=== PATIENT | male | born 1960 | race Caucasian/White ===

== ENCOUNTER 2018-04-30 13:16 | Emergency (ER) | payer BC ==
[2018-04-30] MEDS ORDERED: GLUCAGON,HUMAN RECOMB 1 MG INJ IM ONE (13:37)
--- NOTE | 2018-04-30 13:41 | ER Document Report ---
ED Medical Screen (RME) - General Chief Complaint: Choked/Choking Stated Complaint: FOOD STUCK IN THROAT Time Seen by Provider: 04/30/18 13:31 Mode of Arrival: Ambulatory Information source: Patient TRAVEL OUTSIDE OF THE [place] IN LAST 30 DAYS: No - HPI Patient complains to provider of: food impaction Onset: This morning - pt. states he ate some andrade earlier this am nad it "hasn't gone down." Has tried to drink water but throws it back up - Related Data Allergies/Adverse Reactions: Sulfa (Sulfonamide Antibiotics) Allergy (Verified 04/30/18 13:32) Past Medical History - Social History Chew tobacco use (# tins/day): No Frequency of alcohol use: None Drug Abuse: None Renal/ Medical History: Denies: Hx Peritoneal Dialysis Physical Exam - Vital signs Vitals: Temp Pulse Resp BP Pulse Ox 98.2 F 98 18 168/99 H 98 04/30/18 13:26 04/30/18 13:26 04/30/18 13:26 04/30/18 13:26 04/30/18 13:26 Course - Vital Signs Vital signs: Temp Pulse Resp BP Pulse Ox 98.2 F 98 18 168/99 H 98 04/30/18 13:26 04/30/18 13:26 04/30/18 13:26 04/30/18 13:26 04/30/18 13:26 Doctor's Discharge - Discharge Referrals: KHOANO [Primary Care Provider] - Follow up as needed
--- NOTE | 2018-04-30 14:08 | RADIOLOGY REPORT (SQ) ---
EXAM DESCRIPTION: SOFT TISSUE NECK COMPLETED DATE/TIME: 04/30/2018 1:55 pm REASON FOR STUDY: FB evaluation COMPARISON: None. NUMBER OF VIEWS: Two views. TECHNIQUE: AP and lateral radiographic image of the soft tissues of the neck. LIMITATIONS: None. FINDINGS: EPIGLOTTIS: Normal. Contour normal. Aryepiglottic folds normal. PREVERTEBRAL SOFT TISSUES: Normal. No soft tissue swelling. SUBGLOTTIC AREA: Normal. No narrowing. RETROPHARYNGEAL SPACE: Normal. No soft tissue masses. BONES: No significant findings. LUNG APICES: Normal. OTHER: No radiopaque foreign body. No other significant finding. IMPRESSION: NEGATIVE STUDY OF THE SOFT TISSUES OF THE NECK. TECHNICAL DOCUMENTATION: JOB ID: [id number] [employer]- All Rights Reserved Reading location - IP/workstation name: [email or web address]
--- NOTE | 2018-04-30 15:22 | ER Document Report ---
ED General - General Chief Complaint: Choked/Choking Stated Complaint: FOOD STUCK IN THROAT Time Seen by Provider: 04/30/18 13:31 Mode of Arrival: Ambulatory Notes: Patient is a 57-year-old male with history of esophageal stricture that presents to the emergency department for chief complaint of difficulty swallowing. Patient states that this occurred around 10 AM this morning when he was eating andrade drinking coffee, he felt pain midsternally, and was unable to swallow his secretions, and his son did the Heimlich maneuver on him, which did bring up some andrade, but overall he did not feel much better afterwards. He has had a history of this in the past, he had esophageal dilatation about 5 or 6 years ago, he has been doing well since then, he did have GERD as well, but is not currently on any medication for that. He currently rates his pain as a 1 out of 10, he did receive glucagon in triage and seems to be helping for him. Past Medical History: Hypertension, esophageal stricture, GERD Past Surgical History: Esophageal dilatation Social History: Denies tobacco, alcohol or drug use. Family History: Reviewed and noncontributory for presenting illness Allergies: Reviewed, see documented allergy list. REVIEW OF SYSTEMS: Other than noted above, the 12 point review of systems was reviewed with the patient and were negative, all pertinent findings are included in the HPI. PHYSICAL EXAMINATION: Vital signs reviewed, nursing noted reviewed. GENERAL: Well-appearing, well-nourished and in no acute distress. HEAD: Atraumatic, normocephalic. EYES: Eyes appear normal, extraocular movements intact, sclera anicteric, conjunctiva are normal. ENT: nares patent, oropharynx clear without exudates. Moist mucous membranes. NECK: Normal range of motion, supple without lymphadenopathy LUNGS: Breath sounds clear to auscultation bilaterally and equal. No wheezes rales or rhonchi. HEART: Regular rate and rhythm without murmurs ABDOMEN: Soft, nontender, normoactive bowel sounds. No rebound, guarding, or rigidity. No masses appreciated. EXTREMITIES: Nontender, good range of motion, no pitting or edema. NEUROLOGICAL: No focal neurological deficits. Moves all extremities spontaneously Motor and sensory grossly intact on exam. PSYCH: Normal mood, normal affect. SKIN: Warm, Dry, normal turgor, no rashes or lesions noted on exposed skin TRAVEL OUTSIDE OF THE [place] IN LAST 30 DAYS: No - Related Data Allergies/Adverse Reactions: Sulfa (Sulfonamide Antibiotics) Allergy (Verified 04/30/18 13:32) Past Medical History - General Information source: Patient - Social History Smoking Status: Never Smoker Chew tobacco use (# tins/day): No Frequency of alcohol use: None Drug Abuse: None Family History: Reviewed & Not Pertinent Patient has suicidal ideation: No Patient has homicidal ideation: No - Past Medical History Cardiac Medical History: Reports: Hx Hypertension Renal/ Medical History: Denies: Hx Peritoneal Dialysis GI Medical History: Reports: Hx Gastroesophageal Reflux Disease Physical Exam - Vital signs Vitals: Temp Pulse Resp BP Pulse Ox 98.2 F 98 18 168/99 H 98 04/30/18 13:26 04/30/18 13:26 04/30/18 13:26 04/30/18 13:26 04/30/18 13:26 Course - Re-evaluation Re-evalutation: Patient seen and examined, vital signs reviewed. Patient was given glucagon in triage, and he seems to be doing better, he was able to tolerate liquid juice, without expectorating, will trial him on some dinesh ricky to see if that continues to stay down, if he is able to, we will have him follow-up with gastroenterology, for outpatient evaluation and likely EGD and dilatation. He is advised to maintain on a liquid diet. Soft tissue neck x-rays were ordered by triage provider and were negative. Patient was able to keep down liquids, in the emergency department, without any further vomiting, or expectorating, will discharge him home to follow-up with gastroenterology, given prescription for Carafate, patient agreeable to plan of care and advised to return if his symptoms worsened in any way. His evaluation was most consistent with esophageal impaction versus possible hiatal hernia, that seem to be relieved with glucagon. - Vital Signs Vital signs: Temp Pulse Resp BP Pulse Ox 98.3 F 95 16 128/81 H 97 04/30/18 16:04 04/30/18 16:04 04/30/18 16:04 04/30/18 16:04 04/30/18 16:04 Discharge - Discharge Clinical Impression: Food impaction of esophagus Qualifiers: Encounter type: initial encounter Qualified Code(s): T18.128A - Food in esophagus causing other injury, initial encounter Condition: Stable Disposition: HOME, SELF-CARE Instructions: Esophageal Food Impaction ([facility]) Additional Instructions: Please follow-up with gastroenterology, call for an appointment as soon as possible, in the meantime, he should stick to a liquid diet including protein shakes, to maintain your calories, and drink water, please take the Carafate as prescribed as well, to help coat the lining of your stomach, may help if you do have a hiatal hernia. If your symptoms worsen, you are not able to maintain your secretions, and continue to spit constantly, do not hesitate to return to the emergency department to be reevaluated. Prescriptions: Sucralfate [Carafate 1 gm Tablet] 1 gm PO ACHS #80 tablet Referrals: ALYSON COPELAND MD [ACTIVE STAFF] - Follow up as needed ANGUS QUESADA MD [ACTIVE STAFF] - Follow up as needed
[2018-04-30 16:19] VITALS: BP 128/81
== END 2018-04-30 16:04 | disposition home or self-care (01) ==
LOC: ER 13:16
DX: R10.13 Epigastric pain (principal); R13.10 Dysphagia, unspecified; I10 Essential (primary) hypertension; K21.9 Gastro-esophageal reflux disease without esophagitis; Z88.2 Allergy status to sulfonamides
CPT/HCPCS: 99283; 70360; J1610

== ENCOUNTER 2018-09-10 22:19 | Emergency (ER) | payer BC ==
--- NOTE | 2018-09-10 23:30 | EKG REPORT ---
SEVERITY:- OTHERWISE NORMAL ECG - SINUS TACHYCARDIA : Confirmed by: Sheila Camarillo MD 10-Sep-2018 23:29:24
--- NOTE | 2018-09-11 01:15 | RADIOLOGY REPORT (SQ) ---
EXAM DESCRIPTION: X-ray two view chest. CLINICAL HISTORY: 57 years Male, pain in left side of chest and shoulder radiating down left arm x1 week COMPARISON: None. TECHNIQUE: PA and Lateral views of the chest performed on 09/11/2018 at 1:00 AM FINDINGS: The lungs are well expanded and are clear. The costophrenic sulci are clear. There is no evidence of a pneumothorax. The cardiac silhouette is normal in size. The mediastinal contours are normal. No acute osseous abnormalities are identified. There are mild degenerative changes of the thoracic spine. No focal soft tissue abnormalities are identified. IMPRESSION: No evidence of acute intrathoracic disease.
[2018-09-11 01:30] LABS: ABSOLUTE EOSINOPHILS # (AUTO) 0.1 10^3/uL (0.0-0.6); ABSOLUTE LYMPHOCYTES (AUTO) 1.1 10^3/uL (0.5-4.7); ABSOLUTE MONOCYTES (AUTO) 0.7 10^3/uL (0.1-1.4); ABSOLUTE NEUT (AUTO) 8.6 10^3/uL (1.7-8.2); BASOPHILS % (AUTO) 0.3 % (0-2); EOSINOPHILS % (AUTO) 0.5 % (0-6); HEMATOCRIT 45.8 % (37.9-51.0); HEMOGLOBIN 16.1 g/dL (13.5-17.0); LYMPHOCYTES % (AUTO) 10.7 % (13-45); MEAN CORPUSCULAR HEMOGLOBIN 31.2 pg (27.0-33.4); MEAN CORPUSCULAR HGB CONC 35.1 g/dL (32.0-36.0); MEAN CORPUSCULAR VOLUME 89 fl (80-97); MONOCYTES % (AUTO) 6.9 % (3-13); PLATELET COUNT 234 10^3/uL (150-450); RED BLOOD COUNT 5.16 10^6/uL (4.35-5.55); RED CELL DISTRIBUTION WIDTH 12.9 % (11.5-14.0); SEGMENTED NEUTROPHILS % (AUTO) 81.6 % (42-78); TOTAL CELLS COUNTED % (AUTO) 100 %; WHITE BLOOD COUNT 10.5 10^3/uL (4.0-10.5)
[2018-09-11 01:53] LABS: ALANINE AMINOTRANSFERASE 24 U/L (21-72); ALBUMIN 4.5 g/dL (3.5-5.0); ALKALINE PHOSPHATASE 79 U/L (38-126); ANION GAP 14 (5-19); ASPARTATE AMINO TRANSFERASE 23 U/L (17-59); BILIRUBIN,DIRECT 0.3 mg/dL (0.0-0.4); BILIRUBIN,TOTAL 0.5 mg/dL (0.2-1.3); BLOOD UREA NITROGEN 21 mg/dL (7-20); CALCIUM 9.5 mg/dL (8.4-10.2); CARBON DIOXIDE 23 mmol/L (22-30); CHLORIDE 106 mmol/L (98-107); CREATINE KINASE 102 U/L (55-170); GLUCOSE 88 mg/dL (75-110); POTASSIUM 3.9 mmol/L (3.6-5.0); SODIUM 142.6 mmol/L (137-145); TOTAL PROTEIN 7.6 g/dL (6.3-8.2)
[2018-09-11 02:01] LABS: CREATINE KINASE MB 0.64 ng/mL (<4.55)
[2018-09-11 02:03] LABS: TROPONIN I < 0.012 ng/mL
[2018-09-11] MEDS ORDERED: KETOROLAC TROMETHAMINE 60 MG/2 ML SDV IM ONE (02:42)
--- NOTE | 2018-09-11 02:44 | ER Document Report ---
ED General - General Chief Complaint: Chest Pain Stated Complaint: CHEST PAIN, LEFT ARM PAIN Time Seen by Provider: 09/11/18 01:59 Notes: Patient is a 57-year-old male with a past medical history of essential hypertension who presents with 2 to 3 days of intermittent pain to his left shoulder, left trapezius, left periscapular region, left axilla and left chest wall. Patient states that the pain is positional in nature and that he finds th at sitting or moving in certain ways seems to exacerbate the pain. He also notes that moving his left shoulder seems to worsen the pain. The patient does describe the pain as being an aching, throbbing, soreness. Has not tried nothing for improvement. Saw an urgent care, EKG was done and patient was informed that this is likely musculoskeletal. He states when he began having some shooting pains down into his left upper extremity tonight he decided to come to the hospital to ensure that there was nothing more concerning going on. He denies any history of similar symptoms in the past. He denies any known history of coronary artery disease. Denies any associated nausea, vomiting, diaphoresis or shortness of breath. TRAVEL OUTSIDE OF THE [place] IN LAST 30 DAYS: No - Related Data Allergies/Adverse Reactions: Sulfa (Sulfonamide Antibiotics) Allergy (Verified 04/30/18 13:32) Past Medical History - General Information source: Patient - Social History Smoking Status: Never Smoker Frequency of alcohol use: None Drug Abuse: None Lives with: Alone Family History: Reviewed & Not Pertinent Patient has suicidal ideation: No Patient has homicidal ideation: No - Past Medical History Cardiac Medical History: Reports: Hx Hypertension Renal/ Medical History: Denies: Hx Peritoneal Dialysis GI Medical History: Reports: Hx Gastroesophageal Reflux Disease Review of Systems - Review of Systems Notes: Constitutional: Negative for fever. HENT: Negative for sore throat. Eyes: Negative for visual changes. Cardiovascular: Negative for palpitations Respiratory: Negative for shortness of breath. Gastrointestinal: Negative for abdominal pain, vomiting or diarrhea. Genitourinary: Negative for dysuria. Musculoskeletal: Positive for left shoulder, left axillary and left chest wall pain Skin: Negative for rash. Neurological: Negative for headaches, weakness or numbness. 10 point ROS negative except as marked above and in HPI. Physical Exam - Vital signs Vitals: Temp Pulse Resp BP Pulse Ox 98.1 F 119 H 16 145/88 H 98 09/10/18 22:44 09/10/18 22:44 09/10/18 22:44 09/10/18 22:44 09/10/18 22:44 Interpretation: Tachycardic - Normal at the time of my assessment with a heart rate of 87 Notes: PHYSICAL EXAMINATION: GENERAL: Well-appearing, well-nourished and in no acute distress. HEAD: Atraumatic, normocephalic. EYES: Pupils equal round and reactive to light, extraocular movements intact, sclera anicteric, conjunctiva are normal. ENT: nares patent, oropharynx clear without exudates. Moist mucous membranes. NECK: Normal range of motion, supple without lymphadenopathy LUNGS: Breath sounds clear to auscultation bilaterally and equal. No wheezes rales or rhonchi. HEART: Regular rate and rhythm without murmurs Chest wall: Pain is reproduced on palpation of the left axilla and left lateral chest wall ABDOMEN: Soft, nontender, normoactive bowel sounds. No guarding, no rebound. No masses appreciated. EXTREMITIES: Normal range of motion, no pitting or edema. No cyanosis. NEUROLOGICAL: No focal neurological deficits. Moves all extremities spontane ously and on command. PSYCH: Normal mood, normal affect. SKIN: Warm, Dry, normal turgor, no rashes or lesions noted. Course - Re-evaluation Re-evalutation: 09/11/18 02:43 Patient presents with signs and symptoms most consistent with a cervical nerve root impingement versus musculoskeletal inflammation. Patient presents with ramy n into the shoulder, neck, and radiation of pain into the extremity. Patient also reports of some dullness over the forearm as well as into the hand itself. Patient reports that symptoms are very positional nature and depend upon the position of his shoulder and neck. Pain is been ongoing for several days. Patient is clear to state on multiple occasions that the pain is directly related to movement and position of the left shoulder and left neck. On neurologic exam patient has 5 out of 5 biceps and triceps strength. RMU motor and sensory distribution including against resistance on motor testing is noted to be normal. 2+ radial pulse and capillary refill is less than 1 second in all digits. Laboratories including troponin have been obtained given associated chest discomfort and are noted to be unremarkable. EKG likewise unremarkable. Patient has had improvement of symptoms after receiving analgesia here in the emergency department. Advised supportive pillow for sleep at night, have treated with NSAIDs. At this time will discharge with return precautions and follow-up recommendations. Verbal discharge instructions given a the bedside and opportunity for questions given. Medication warnings reviewed. Patient is in agreement with this plan and has verbalized understanding of return precautions and the need for primary care follow-up in the next 24-72 hours. - Vital Signs Vital signs: Temp Pulse Resp BP Pulse Ox 98.3 F 119 H 18 119/86 H 99 09/11/18 03:01 09/10/18 22:44 09/11/18 03:01 09/11/18 03:01 09/11/18 03:01 - Laboratory Result Diagrams: 09/11/18 00:42 09/11/18 00:42 Laboratory results interpreted by me: 09/11/18 09/11/18 00:42 00:42 Seg Neutrophils % 81.6 H Lymphocytes % 10.7 L Absolute Neutrophils 8.6 H BUN 21 H - Diagnostic Test Radiology reviewed: Image reviewed, Reports reviewed Radiology results interpreted by me: 09/11/18 02:43 Chest x-ray: No acute infiltrate or pneumothorax - EKG Interpretation by Me Additional EKG results interpreted by me: 09/11/18 02:44 Sinus tachycardia, rate 116, no ST elevations or depressions. QTC is 439. Discharge - Discharge Clinical Impression: Left-sided chest wall pain, Left arm pain Left shoulder pain Qualifiers: Chronicity: acute Qualified Code(s): M25.512 - Pain in left shoulder Condition: Good Disposition: HOME, SELF-CARE Additional Instructions: You were seen today for chest pain. The exact cause of your pain is unclear. It may be related to impingement of your cervical nerve root. However, based on your cardiac enzyme testing, chest x-ray, and EKG it does not appear that it is from an immediately life-threatening cause at this time. Although your testing here is normal is critical that you follow-up with your primary care physician for continued evaluation of this chest pain and possible stress testing. I recommended you see your physician within the next 24-48 hours to be evaluated for consideration of a stress test. Please return to emergency department immediately if you have worsening of your chest pain, shortness of breath, vomiting, become unable to exert yourself due to pain or difficulty breathing, you pass out, or have any pain that radiates into your arms, jaw, or back. Plea se also return if you have any additional symptoms that are concerning to you. Prescriptions: Naproxen 500 mg PO BID PRN #14 tablet PRN Reason:
[2018-09-11 03:33] VITALS: BP 119/86
== END 2018-09-11 03:25 | disposition home or self-care (01) ==
LOC: ER 22:19
DX: R07.89 Other chest pain (principal); M79.622 Pain in left upper arm; M25.512 Pain in left shoulder; M54.89 Other dorsalgia; R00.0 Tachycardia, unspecified; I10 Essential (primary) hypertension; Z88.2 Allergy status to sulfonamides
CPT/HCPCS: 93005; 99284; 96372; 36415; 82553; 82550; 85025; 80053; 84484; 71046; 93010; J1885

== ENCOUNTER 2019-04-06 03:29 | Emergency (ER) | payer BC ==
[2019-04-06 05:11] LABS: ABSOLUTE EOSINOPHILS # (AUTO) 0.1 10^3/uL (0.0-0.6); ABSOLUTE LYMPHOCYTES (AUTO) 1.3 10^3/uL (0.5-4.7); ABSOLUTE MONOCYTES (AUTO) 0.5 10^3/uL (0.1-1.4); ABSOLUTE NEUT (AUTO) 5.5 10^3/uL (1.7-8.2); BASOPHILS % (AUTO) 0.2 % (0-2); HEMOGLOBIN 16.4 g/dL (13.5-17.0); LYMPHOCYTES % (AUTO) 17.2 % (13-45); MEAN CORPUSCULAR HEMOGLOBIN 31.6 pg (27.0-33.4); MEAN CORPUSCULAR HGB CONC 34.9 g/dL (32.0-36.0); MEAN CORPUSCULAR VOLUME 91 fl (80-97); MONOCYTES % (AUTO) 6.8 % (3-13); PLATELET COUNT 217 10^3/uL (150-450); RED CELL DISTRIBUTION WIDTH 12.9 % (11.5-14.0); SEGMENTED NEUTROPHILS % (AUTO) 74.8 % (42-78); TOTAL CELLS COUNTED % (AUTO) 100 %; WHITE BLOOD COUNT 7.3 10^3/uL (4.0-10.5)
[2019-04-06 05:28] LABS: ALBUMIN 4.6 g/dL (3.5-5.0); ALKALINE PHOSPHATASE 67 U/L (38-126); ANION GAP 11 (5-19); ASPARTATE AMINO TRANSFERASE 30 U/L (17-59); BILIRUBIN,DIRECT 0.2 mg/dL (0.0-0.4); BILIRUBIN,TOTAL 0.4 mg/dL (0.2-1.3); BLOOD UREA NITROGEN 13 mg/dL (7-20); CALCIUM 9.4 mg/dL (8.4-10.2); CARBON DIOXIDE 24 mmol/L (22-30); CHLORIDE 106 mmol/L (98-107); CREATINE KINASE 341 U/L (55-170); GLUCOSE 106 mg/dL (75-110); TOTAL PROTEIN 7.5 g/dL (6.3-8.2)
[2019-04-06 05:40] LABS: TROPONIN I < 0.012 ng/mL
--- NOTE | 2019-04-06 06:01 | RADIOLOGY REPORT (SQ) ---
CLINICAL HISTORY: CP COMPARISON: None. TECHNIQUE: XR CHEST 2 VIEWS 04/06/2019 12:00 AM MARKETING EXECUTIVE FINDINGS: Cardiac silhouette is normal in size. Lungs are clear without consolidation, atelectasis, mass or edema. There is no pleural effusion. There is no pneumothorax. There are no acute osseous findings. IMPRESSION: Clear lungs.
[2019-04-06] MEDS ORDERED: LOSARTAN POTASSIUM 25 MG TABLET PO ONE (09:48)
--- NOTE | 2019-04-06 10:56 | ER Document Report ---
ED Cardiac - General Chief Complaint: Chest Pain Stated Complaint: CHEST PAIN/BLOOD PRESSURE ISSUES Time Seen by Provider: 04/06/19 09:23 Notes: 4-year-old male with history of hypertension presents for left-sided chest pressure point to the left shoulder blade started last night at 1700. Patient had no associated dyspnea, dizziness, diaphoresis, nausea/vomiting. Patient states his pain has resolved. Patient states he checked his blood pressure and states it was elevated. Patient states off his blood pressure meds for approximately 6 months because his PCP took him off of it. Patient also states that time he has gained 25 pounds. Patient states previous to this he did actively lose 80 pounds and his primary care doctor weaned him off his blood pressure meds. Patient states family history is positive for a father who had stents placed in his 60s TRAVEL OUTSIDE OF THE [place] IN LAST 30 DAYS: No - Related Data Allergies/Adverse Reactions: Sulfa (Sulfonamide Antibiotics) Allergy (Verified 04/30/18 13:32) Past Medical History - Social History Smoking Status: Never Smoker Family History: Reviewed & Not Pertinent Patient has suicidal ideation: No Patient has homicidal ideation: No - Past Medical History Cardiac Medical History: Reports: Hx Hypertension Renal/ Medical History: Denies: Hx Peritoneal Dialysis GI Medical History: Reports: Hx Gastroesophageal Reflux Disease Review of Systems - Review of Systems Notes: Constitutional: Negative for fever. HENT: Negative for sore throat. Eyes: Negative for visual changes. Cardiovascular: Positive for chest pain. Respiratory: Negative for shortness of breath. Gastrointestinal: Negative for abdominal pain, vomiting or diarrhea. Genitourinary: Negative for dysuria. Musculoskeletal: Negative for back pain. Skin: Negative for rash. Neurological: Negative for headaches, weakness or numbness. 10 point ROS negative except as marked above and in HPI. Physical Exam - Vital signs Vitals: Temp Pulse Resp BP Pulse Ox 97.7 F 111 H 18 200/104 H 99 04/06/19 03:38 04/06/19 03:38 04/06/19 03:38 04/06/19 03:38 04/06/19 03:38 - Notes Notes: GENERAL: Well-appearing, well-nourished and in no acute distress. HEAD: Atraumatic, normocephalic. EYES: Extraocular movements intact, sclera anicteric, conjunctiva are normal. NECK: Normal range of motion, supple without lymphadenopathy or JVD. LUNGS: Breath sounds clear to auscultation bilaterally and equal. No wheezes rales or rhonchi. HEART: Regular rate and rhythm without murmurs, rubs or gallops. ABDOMEN: Soft, nontender. No guarding, no rebound. No masses appreciated. EXTREMITIES: Normal range of motion, no pitting or edema. No clubbing or cyanosis. NEUROLOGICAL: Cranial nerves II through XII grossly intact. Normal speech, normal gait. PSYCH: Normal mood, normal affect. SKIN: Warm, Dry, normal turgor, no rashes or lesions noted. Course - Re-evaluation Re-evalutation: 04/06/19 Presentation of chest pain in an otherwise well appearing patient. Low clinical suspicion for ACS given clinical history, exam, EKG without ST elevations or depressions, and negative initial troponin. HEART score 2. PE also seems unlikely given clinical history, absence of tachycardia or dyspnea. Patient is PERC criteria negative. CXR without evidence of pneumothorax or pneumonia. No widened mediastinum. Aortic dissection also seems unlikely given history, symmetric pulses, CXR, and vitals. HEART Score: 2 Chest pain in a patient without evidence of cardiac or other serious etiology on workup today. I discussed with patient that, based on their age, risk factors and emergency department testing today, the likelihood that their symptoms are related to a heart attack is very low (estimated risk of heart attack or over the next 30 days of less than 1%). The patient demonstrates decision making capacity and has verbalized an understanding of these risks to me. Based on this, the patient has chosen to follow-up as an outpatient. 04/06/19 10:55 patient given 1 dose of the blood pressure medicine and blood pressure improved to 171/105. Will restart patient back on his blood pressure medicine and give close follow-up with PCP with follow-up with power tool repair technician as well. Discussed all results with patient. Strict return precautions given. Patient voices understanding and agrees with plan of care. - Vital Signs Vital signs: Temp Pulse Resp BP Pulse Ox 98.4 F 111 H 13 157/102 H 96 04/06/19 07:01 04/06/19 03:38 04/06/19 10:00 04/06/19 09:50 04/06/19 10:00 - Laboratory Result Diagrams: 04/06/19 04:44 04/06/19 04:44 Laboratory results interpreted by me: 04/06/19 04:44 Creatine Kinase 341 H Discharge - Discharge Clinical Impression: Chest pain Qualifiers: Chest pain type: unspecified Qualified Code(s): R07.9 - Chest pain, unspecified Hypertension Qualifiers: Hypertension type: unspecified Qualified Code(s): I10 - Essential (primary) hypertension Condition: Stable Disposition: HOME, SELF-CARE Instructions: Chest Pain of Unclear Cause ([facility]), High Blood Pressure ([facility]) Additional Instructions: Your blood pressure improved with 1 dose of blood pressure medicine. Please take your blood pressure medicine as prescribed. Please follow-up with your primary care doctor in 3 to 5 days. Please follow-up with the power tool repair technician listed in 3 to 5 days. Return to ER immediately for worsening symptoms, including chest pain, shortness of breath, nausea/vomiting, fever, abdominal pain, or any other symptoms that are concerning to you. Prescriptions: Losartan Potassium [Cozaar] 25 mg PO DAILY #30 tablet Forms: Return to Work Referrals: ANN JOHNSON MD [ACTIVE STAFF] - Follow up in 3-5 days
[2019-04-06 11:10] VITALS: BP 171/105
--- NOTE | 2019-04-06 19:26 | EKG REPORT ---
SEVERITY:- BORDERLINE ECG - SINUS TACHYCARDIA BORDERLINE T ABNORMALITIES, INFERIOR LEADS : Confirmed by: Sheila Camarillo MD 06-Apr-2019 19:25:29
--- NOTE | 2019-04-06 19:27 | EKG REPORT ---
SEVERITY:- OTHERWISE NORMAL ECG - SINUS TACHYCARDIA : Confirmed by: Sheila Camarillo MD 06-Apr-2019 19:25:53
== END 2019-04-06 11:15 | disposition home or self-care (01) ==
LOC: ER 03:29
DX: R07.89 Other chest pain (principal); I10 Essential (primary) hypertension; R63.5 Abnormal weight gain; Z88.2 Allergy status to sulfonamides
CPT/HCPCS: 36415; 71046; 80053; 82550; 82553; 84484; 85025; 93005; 93010; 99285